=== PATIENT | male | born 1980 | race Caucasian/White ===

== ENCOUNTER 2017-03-16 17:57 | Emergency (ER) | payer MEDICARE, OTHER | END 2017-03-16 19:02 | disposition home or self-care (01) | LOC: ER 17:57 | DX: M54.42 Lumbago with sciatica, left side (principal); F17.210 Nicotine dependence, cigarettes, uncomplicated; Z90.49 Acquired absence of other specified parts of digestive tract; Z88.0 Allergy status to penicillin | CPT/HCPCS: 96372; J1885 ==